=== PATIENT | male | born 1985 | race African-American/Black ===

== ENCOUNTER 2016-08-31 12:17 | Emergency (ER) | payer OTHER ==
[~2016-08-31] VITALS: Ht 195.6 cm; Wt 72.7 kg
[~2016-08-31 12:17] MED LIST: AMOXICILLIN500 M1 PO; BACTRIM,SEPT1 TABLET PO; MOTRIN600 MG PO; PREDNISONE20 MG PO; TOBREX5 ML BOTH EYES; ULTRAM50 MG PO
[2016-08-31] MEDS ORDERED: AMOXICILLIN875 MG PO ×2 (13:17→14:17)
[2016-08-31] MEDS ORDERED: AUGMENTIN875 MG PO (13:17)
[2016-08-31 13:51] LABS: HEMATOCRIT 19.5 % (38.0-50.0); MCH 29.5 PG (29.0-34.0); MCHC 36.9 G/DL (30.0-36.0); MCV 79.9 FL (86-99); MEAN PLAT.VOLUME 9.4 uM^3 (9.0-12.4); NRBC (%) 1.1 /100 WBC (0-0); PLATELET COUNT 336 K/uL (156-360); RBC DIS.WIDTH-CV 26.7 % (11.8-14.6); RBC DIS.WIDTH-SD 73.5 % (39-53); RED BLOOD COUNT 2.44 M/uL (4.00-5.50); WHITE BLOOD COUNT 15.8 K/uL (4.1-10.2)
[2016-08-31 14:02] LABS: CHLORIDE 107 mEq/L (99-109); POTASSIUM 4.1 mEq/L (3.7-5.4); SODIUM 138 mEq/L (136-147)
[2016-08-31 14:04] LABS: GLUCOSE 92 mg/dL (70-99)
[2016-08-31 14:05] LABS: ANION GAP 6 MEQ/L (2-14)
[2016-08-31 14:06] LABS: TOTAL BILIRUBIN 5.2 mg/dL (0.0-1.0)
[2016-08-31 14:07] LABS: ALKALINE PHOSPHATASE 39 IU/L (3-129)
[2016-08-31 14:08] LABS: GFR ESTIMATE (CALCULATED) > 59 mL/min/
[2016-08-31 14:09] LABS: UREA NITROGEN (BUN) 6 mg/dL (9-23)
[2016-08-31 14:54] VITALS: BP 122/68
== END 2016-08-31 14:56 | disposition left against medical advice (07) ==
LOC: EXP 12:17 → EME 12:17 → EXP 14:56
PROVIDERS: Physician Assistant
PROC: 0C96XZZ Drainage of Lower Gingiva, External Approach (ICD-10-PCS; principal; 2016-08-31)
DX: K04.7 Periapical abscess without sinus (principal); D57.1 Sickle-cell disease without crisis; R09.02 Hypoxemia; R17 Unspecified jaundice; Z87.891 Personal history of nicotine dependence
CPT/HCPCS: 71020; 80053; 85027; 86900; 86901; 99281; 99284; J0696

== ENCOUNTER 2016-12-23 08:19 | Emergency (ER) | payer OTHER ==
[~2016-12-23] VITALS: Ht 195.6 cm; Wt 74.2 kg
[~2016-12-23 08:19] MED LIST changes: +AMOXICILLIN875 MG PO; +AUGMENTIN875 MG PO
[2016-12-23] MEDS ORDERED: LEVAQUIN750 MG PO (10:03)
[2016-12-23] MEDS ORDERED: TYLENOL WITH C1 EACH PO (10:03)
[2016-12-23 11:22] VITALS: BP 112/63
== END 2016-12-23 11:04 | disposition home or self-care (01) ==
LOC: EME 08:19
DX: J18.9 Pneumonia, unspecified organism (principal); S10.93XA Contusion of unspecified part of neck, initial encounter; S20.229A Contusion of unspecified back wall of thorax, initial encounter; V43.52XA Car driver injured in collision with other type car in traffic accident, initial encounter; Y92.410 Unspecified street and highway as the place of occurrence of the external cause
CPT/HCPCS: 71020; 72040; 72070; 99281; 99284